=== PATIENT | female | born 1955 | race Caucasian/White ===

== ENCOUNTER → 2018-01-28 | Outpatient (CLI) | payer BC ==
--- NOTE | 2018-01-30 11:23 | MM ---
Reason for exam: screening (asymptomatic). Last mammogram was performed 1 year and 10 months ago. History: Patient is postmenopausal and had first child at age 34. Family history of breast cancer in maternal aunt at age 50 and breast cancer in maternal grandmother at age 85. Took hormonal contraceptives for 28 years. Taking estrogen for 1 year beginning at age 55. Taking progesterone for 1 year beginning at age 55. Physical Findings: A clinical breast exam by your physician is recommended on an annual basis and results should be correlated with mammographic findings. MG 3D Screening Mammo W/Cad Bilateral CC and MLO view(s) were taken. Prior study comparison: April 11, 2016, bilateral MG screening mammo w CAD. August 19, 2014, bilateral MG screening mammo w CAD. The breast tissue is heterogeneously dense. This may lower the sensitivity of mammography. No significant changes when compared with prior studies. ASSESSMENT: Negative, BI-RAD 1 RECOMMENDATION: Routine screening mammogram of both breasts in 1 year.
== END ==
LOC: RADMAMWWP 14:21
PROVIDERS: ATTEND Obstetrics & Gynecology
DX: Z12.31 Encounter for screening mammogram for malignant neoplasm of breast (principal); Z80.3 Family history of malignant neoplasm of breast
CPT/HCPCS: 77063; 77067

== ENCOUNTER → 2019-01-29 | Outpatient (CLI) | payer BC ==
--- NOTE | 2019-02-01 13:44 | MM ---
Reason for exam: screening (asymptomatic). Last mammogram was performed 1 year ago. History: Patient is postmenopausal and had first child at age 34. Family history of breast cancer in maternal aunt at age 50 and breast cancer in maternal grandmother at age 85. Took hormonal contraceptives for 28 years. Taking estrogen for 1 year beginning at age 55. Taking progesterone for 1 year beginning at age 55. Physical Findings: A clinical breast exam by your physician is recommended on an annual basis and results should be correlated with mammographic findings. MG 3D Screening Mammo W/Cad Bilateral CC and MLO view(s) were taken. Prior study comparison: January 28, 2018, bilateral MG 3d screening mammo w/cad. April 11, 2016, bilateral MG screening mammo w CAD. The breast tissue is heterogeneously dense. This may lower the sensitivity of mammography. No significant changes when compared with prior studies. ASSESSMENT: Benign, BI-RAD 2 RECOMMENDATION: Routine screening mammogram of both breasts in 1 year.
== END | disposition home or self-care (01) ==
LOC: RADMAMWWP 10:51
PROVIDERS: ATTEND Obstetrics & Gynecology
DX: Z12.31 Encounter for screening mammogram for malignant neoplasm of breast (principal); Z80.3 Family history of malignant neoplasm of breast
CPT/HCPCS: 77063; 77067

== ENCOUNTER → 2020-03-27 | Outpatient (CLI) | payer BC ==
--- NOTE | 2020-03-28 11:31 | MM ---
Reason for exam: screening (asymptomatic). Last mammogram was performed 1 year and 2 months ago. History: Patient is postmenopausal and had first child at age 34. Family history of breast cancer in maternal aunt at age 50 and breast cancer in maternal grandmother at age 85. Took hormonal contraceptives for 28 years. Taking estrogen for 1 year beginning at age 55. Taking progesterone for 1 year beginning at age 55. Physical Findings: A clinical breast exam by your physician is recommended on an annual basis and results should be correlated with mammographic findings. MG 3D Screening Mammo W/Cad Bilateral CC and MLO view(s) were taken. Prior study comparison: January 29, 2019, bilateral MG 3d screening mammo w/cad. January 28, 2018, bilateral MG 3d screening mammo w/cad. The breast tissue is heterogeneously dense. This may lower the sensitivity of mammography. There is no discrete abnormality. ASSESSMENT: Negative, BI-RAD 1 RECOMMENDATION: Routine screening mammogram of both breasts in 1 year.
== END | disposition home or self-care (01) ==
LOC: RADMAMWWP 09:34
PROVIDERS: ATTEND Obstetrics & Gynecology
DX: Z12.31 Encounter for screening mammogram for malignant neoplasm of breast (principal)
CPT/HCPCS: 77063; 77067

== ENCOUNTER → 2021-12-13 | Outpatient (CLI) | payer BC ==
--- NOTE | 2021-12-14 07:43 | MM ---
Reason for Exam: Screening (asymptomatic). Last mammogram was performed 1 year(s) and 9 month(s) ago. Patient History: Menarche at age 17. First Full-Term at age 34. Late child-bearing (after 30). Postmenopausal. Currently using Estrogen, beginning at age 55 for 1 year. Currently using Progesterone, beginning at age 55 for 1 year. Patient used Hormonal Contraceptives for 28 years. Maternal grandmother had breast cancer, age 85. Maternal aunt had breast cancer, age 50. Risk Values: Gwendolyn 5 year model risk: 2.1%. NCI Lifetime model risk: 7.8%. Prior Study Comparison: 01/28/2018 Bilateral Screening Mammogram, [facility]. 01/29/2019 Bilateral Screening Mammogram, [facility] 03/27/2020 Bilateral Screening Mammogram, [facility]. Tissue Density: The breast tissue is heterogeneously dense. This may lower the sensitivity of mammography. Findings: Analyzed By CAD. There is a grouping of punctate calcifications within the upper-outer aspect left breast which is an interval change. Additional workup with magnification views is recommended. Right breast appear stable. Overall Assessment: Incomplete: need additional imaging evaluation, BI-RAD 0 Management: Diagnostic Mammogram of the left breast. A negative mammogram report should not preclude additional follow up of suspicious palpable abnormalities. Patient should continue monthly self breast exam. A clinical breast exam by your physician is recommended on an annual basis and results should be correlated with mammographic findings. Electronically signed and approved by: Zana Webb D.O. Radiologis
== END | disposition home or self-care (01) ==
LOC: RADMAMWWP 16:49
PROVIDERS: ATTEND Obstetrics & Gynecology
DX: Z12.31 Encounter for screening mammogram for malignant neoplasm of breast (principal); Z80.3 Family history of malignant neoplasm of breast
CPT/HCPCS: 77063; 77067

== ENCOUNTER → 2021-12-21 | Outpatient (CLI) | payer BC ==
--- NOTE | 2021-12-21 14:51 | MM ---
Reason for Exam: Additional evaluation requested from abnormal screening. Last screening mammogram was performed less than 1 month ago. Patient History: Menarche at age 17. First Full-Term at age 34. Late child-bearing (after 30). Postmenopausal. Currently using Estrogen, beginning at age 55 for 1 year. Currently using Progesterone, beginning at age 55 for 1 year. Patient used Hormonal Contraceptives for 28 years. Maternal grandmother had breast cancer, age 85. Maternal aunt had breast cancer, age 50. Risk Values: Gwendolyn 5 year model risk: 2.1%. NCI Lifetime model risk: 7.8%. Prior Study Comparison: 01/29/2019 Bilateral Screening Mammogram, [facility]. 03/27/2020 Bilateral Screening Mammogram, [facility]. 12/13/2021 Bilateral MG 3D screening mammo w/cad, [facility]. Tissue Density: Left: The breast tissue is heterogeneously dense. This may lower the sensitivity of mammography. Findings: Analyzed By CAD. Patient notes an area of palpable abnormality since recent screening mammogram. The site of concern was marked with a palpable skin marker. At the site of clinical concern there is a spiculated mass measuring an estimated 1.0 x 1.3 cm. Ultrasound is recommended. At the site of the patient's call back posterior one third left breast upper outer quadrant no discrete abnormality is identified. Ultrasound of the upper outer quadrant left breast including the axilla is recommended. Overall Assessment: Incomplete: need additional imaging evaluation, BI-RAD 0 Management: Diagnostic Breast Ultrasound of the left breast. A clinical breast exam by your physician is recommended on an annual basis and results should be correlated with mammographic findings. This exam should not preclude additional follow-up of suspicious palpable abnormalities. Results were given to the patient verbally at the time of exam. Electronically signed and approved by: Hernan Rodas M.D. Radiologis
--- NOTE | 2021-12-21 14:52 | USB ---
Reason for Exam: Additional evaluation requested from abnormal screening. Patient History: Menarche at age 17. First Full-Term at age 34. Late child-bearing (after 30). Postmenopausal. Currently using Estrogen, beginning at age 55 for 1 year. Currently using Progesterone, beginning at age 55 for 1 year. Patient used Hormonal Contraceptives for 28 years. Maternal grandmother had breast cancer, age 85. Maternal aunt had breast cancer, age 50. Risk Values: Gwendolyn 5 year model risk: 2.1%. NCI Lifetime model risk: 7.8%. Technique: Method: Targeted. Prior Study Comparison: 01/29/2019 Bilateral Screening Mammogram, [facility]. 03/27/2020 Bilateral Screening Mammogram, [facility]. 12/13/2021 Bilateral MG 3D screening mammo w/cad, [facility]. Findings: The upper outer quadrant of the left breast and the axilla of the left breast were scanned. There is a spiculated hypoechoic mass at the site of clinical concern which corresponds to the left 12:00 position 2 cm from the nipple and measures approximately 1.3 x 1.0 x .8 cm. Tissue diagnosis is recommended. There is also an enlarged and thickened lymph node left axillary tail measuring 1.3 cm for which biopsy is also recommended. At the left 1:00 position 4 cm from the nipple there is a small 3.4 mm cyst. Overall Assessment: Highly suggestive of malignancy, BI-RAD 5 Management: Ultrasound Core Biopsy of the left breast. A clinical breast exam by your physician is recommended on an annual basis and results should be correlated with mammographic findings. Electronically signed and approved by: Hernan Rodas M.D. Radiologis
== END | disposition home or self-care (01) ==
LOC: RADMAMWWP 13:32
PROVIDERS: ATTEND Obstetrics & Gynecology
DX: R92.8 Other abnormal and inconclusive findings on diagnostic imaging of breast (principal)
CPT/HCPCS: 77061; 77065

== ENCOUNTER → 2022-01-04 | Day surgery (SDC) | payer BC ==
--- NOTE | 2022-01-04 12:16 | MM ---
Reason for Exam: Post Procedure Mammogram. Last screening mammogram was performed less than 1 month ago. Patient History: Menarche at age 17. First Full-Term at age 34. Late child-bearing (after 30). Postmenopausal. Currently using Estrogen, beginning at age 55 for 1 year. Currently using Progesterone, beginning at age 55 for 1 year. Patient used Hormonal Contraceptives for 28 years. Maternal grandmother had breast cancer, age 85. Maternal aunt had breast cancer, age 50. Risk Values: Gwendolyn 5 year model risk: 2.1%. NCI Lifetime model risk: 7.8%. Tissue Density: Left: The breast tissue is heterogeneously dense. This may lower the sensitivity of mammography. Overall Assessment: Post procedure mammogram for marker placement Management: Clinical Management Electronically signed and approved by: Chilo Cain D.O.
--- NOTE | 2022-01-11 10:50 | USB ---
Risk Values: Gwendolyn 5 year model risk: 2.1%. NCI Lifetime model risk: 7.8%. Prior Study Comparison: 03/27/2020 Bilateral Screening Mammogram, [facility]. 12/13/2021 Bilateral MG 3D screening mammo w/cad, [facility]. 12/21/2021 Left MG 3D work up w/cad , [facility]. Pathology Description: Location: 12 o'clock, anterior, axilla. Marker Left Behind. 1200 , 5 CORES RIBBON CLIP. AXILLA 6 CORES HYDROMARK The procedure of ultrasound guided core biopsy was explained to the patient. Benefits, alternatives, and risks were discussed. An informed consent was then obtained. The patient was placed in supine positioning for imaging and for the procedure. The overlying skin was prepped and draped in usual sterile fashion. Lidocaine was used as anesthetic into the skin and subcutaneous tissue up to area of concern in the left breast. Under ultrasound guidance, a 12-gauge vacuum assisted biopsy gun device was used to obtain 5 core samples. Following this, a biopsy clip was left in lesion. Attention was turned to the left axilla to the abnormal lymph node. Lidocaine was used as anesthetic into the skin and subcutaneous tissues up to the abnormal lymph node. An 18-gauge [employer] biopsy gun device was used to obtain 6 core samples. Following this a hydromark biopsy clip was left in the lymph node. The patient tolerated the procedure well without any immediate complication. The patient was kept in the radiology department for short stay after the procedure and then discharged home in stable condition. Postprocedure mammogram: The patient was transferred to mammography for physician ordered post procedure mammogram for clip placement verification. The mammogram clip for the breast lesion appears to be in appropriate position. Impression: Successful, uncomplicated ultrasound guided core biopsy of area of concern in the left breast and abnormal left axillary lymph node, full pathology results to follow. Pathology Results: Result: Malignant, Invasive ductal carcinoma. A. LEFT BREAST, TWELVE O'CLOCK, ULTRASOUND GUIDED NEEDLE CORE BIOPSY: Focal Grade 2 invasive ductal carcinoma with areas of lobular neoplasia (ALH/LCIS). See Surgical Pathology Cancer Case Summary and Comment. B. LEFT AXILLA, CORE BIOPSY: Invasive ductal carcinoma, Grade 1 (See Surgical Pathology Cancer Case Summary and Comment). Overall Assessment: Malignant Management: Surgical Consultation of the left breast. Electronically signed and approved by: Chilo Cian D.O.
== END ==
LOC: RADUSWWP 10:08
PROVIDERS: ATTEND Surgery
DX: C50.412 Malignant neoplasm of upper-outer quadrant of left female breast (principal); Z80.3 Family history of malignant neoplasm of breast
CPT/HCPCS: 88305; 88342; 88341; 77065; 19083; A4648

== ENCOUNTER → 2023-08-05 | Outpatient (CLI) | payer BC ==
[2023-08-05 15:44] VITALS: BP 126/81; PULSE 69; RESP 12; TEMP 98.2
--- NOTE | 2023-08-05 16:25 | P.SLEEP ---
History of Present Illness H&P Date: 08/05/23 This is a very pleasant 67-year-old female patient is coming in for further advice regarding her recent home sleep study that was done through [employer] regarding her possibly having obstructive sleep apnea. The patient was feeling chronic if he fatigued and she had also some limited sleepiness. Her [place] score was at 3. The patient underwent a home sleep study through this company and this study was done on 05/14/2023. The total sleep time was 6 hours and 1 minutes. During this time, the patient encountered a total of 137 apneas and these were essentially unclassified apneas. This study did not mention whether this was obstructive or central sleep apnea. The patient also encountered mild nocturnal oxygen desaturation. There was a total of 189 oxygen saturations were counted and the patient spent approximately 0.5 minutes of the sleep time below pulse ox of 89%. Based on that, CPAP therapy was recommended. The patient was uncomfortable on definitive treatment. She came in for further advice. He is known to have's some mild soft snoring. She goes to bed around midnight wakes up 8 AM in the morning. She is currently retired. She is feeling tired and fatigue during the day. No recent weight loss gain. No alcoholism. No substance abuse. No sleep fragmentation. No sleep paralysis hallucinations or cataplexy. He does not have history of depression. She also has history of breast cancer and she has undergone lumpectomy and radiation therapy and currently she is on hormonal treatment. In regards to her depression, is currently on a combination of bupropion and paroxetine. She is sleeping on her side. She seems to be a nose breather. No nocturnal seizures. No chest pain or shortness of breath. No anxiety. No sleep attacks. No nocturnal palpitation. No issues with memory or concentration. She does not fall asleep while driving her car. Review of Systems Constitutional: Reports daytime sleepiness, Reports fatigue Eyes: denies as per HPI, denies blurred vision, denies bulging eye, denies decreased vision, denies diplopia, denies discharge, denies dry eye, denies irritation, denies itching, denies pain, denies photophobia, denies loss of peripheral vision, denies loss of vision, denies tunnel vision/blind spots Ears: deny: decreased hearing, ear discharge, earache, tinnitus Ears, nose, mouth and throat: Reports as per HPI Breasts: absent: as per HPI, change in shape, gynecomastia, masses, nipple discharge, pain, skin changes, swelling Cardiovascular: Reports as per HPI Respiratory: Reports sleep apnea Gastrointestinal: Reports as per HPI Genitourinary: Reports as per HPI Menstruation: Reports as per HPI Musculoskeletal: Reports as per HPI Musculoskeletal: absent: ankle pain, ankle stiffness, ankle swelling Integumentary: Reports as per HPI Neurological: Reports as per HPI Psychiatric: Reports as per HPI Endocrine: Reports as per HPI, Reports fatigue Hematologic/Lymphatic: Reports as per HPI Allergic/Immunologic: Reports as per HPI Past Medical History Past Medical History: Cancer (Breast cancer with a previous lumpectomy followed by radiation therapy and currently she is on hormone treatment.) Additional Past Medical History / Comment(s): breast History of Any Multi-Drug Resistant Organisms: None Reported Past Surgical History: Breast Surgery, Orthopedic Surgery Additional Past Surgical History / Comment(s): Dilatation and curettagge. Right meniscus repair 2012 Past Anesthesia/Blood Transfusion Reactions: No Reported Reaction Past Psychological History: Anxiety Smoking Status: Never smoker Past Alcohol Use History: Rare Past Drug Use History: None Reported Medications and Allergies Home Medications Medication Instructions Recorded Confirmed Type [place]-3/Dha/Epa/Fish Oil [Fish Oil 1 each PO DAILY 12/24/21 08/05/23 History 1,000 mg Softgel] PARoxetine [Paxil] 10 mg PO DAILY 12/24/21 08/05/23 History Progesterone, Micronized 200 mg PO HS 12/24/21 12/24/21 History [Progesterone] buPROPion XL [Wellbutrin XL] 150 mg PO DAILY 12/24/21 08/05/23 History Letrozole [Femara] 2.5 mg PO DAILY 08/05/23 08/05/23 History estradioL [Vagifem] 10 mcg VAGINAL 08/05/23 History Allergies Allergy/AdvReac Type Severity Reaction Status Date / Time No Known Allergies Allergy Verified 12/24/21 10:07 Physical Exam Vitals: Vital Signs Temp Pulse Resp BP Pulse Ox 08/05/23 15:32 98.2 F 69 12 126/81 96 Intake and Output 08/05/23 08/05/23 08/05/23 06:59 14:59 22:59 Other: Weight 77.564 kg The patient appeared well nourished and normally developed. Vital signs as documented. Head exam is unremarkable. No scleral icterus or corneal arcus noted. Neck is without jugular venous distension, thyromegaly, or carotid bruits. Carotid upstrokes are brisk bilaterally. Lungs are clear to auscultation and percussion. Cardiac exam reveals the PMI to be normally sized and situated. Rhythm is regular. First and second heart sounds normal. No murmurs, rubs or gallops. Abdominal exam reveals normal bowel sounds, no masses, no organomegaly and no aortic enlargement. Extremities are nonedematous and both femoral and pedal pulses are normal. Examination of the skin revealed no evidence of signif icant rashes, suspicious appearing nevi or other concerning lesions. Neurologically, the patient is awake and alert and the patient does not have any focal neurological deficit. Cranial nerves are essentially intact. Assessment and Plan Plan: Sleep apnea. Based on the home sleep study that was done on 05/14/2023, the patient was diagnosed having moderately severe sleep apnea with an AHI of 22. Nevertheless, the study did not indicate whether this was obstructive or central. In fact, there was a total of 137 respiratory events that were unclassified. Minimal nocturnal oxygen saturation identified. As such, no decisions can be made on treatment options. This could be potential obstructive versus mixed versus central. Chronic fatigue Limited sleepiness, current [place] score is at 3 Mild snoring History of breast cancer with previous lumpectomy radiation therapy History of chronic depression maintained on a combination of paroxetine and bupropion Plan I discussed the findings with the patient. Obviously, no decision can be made on treatment options specially the patient's study was suboptimal and the respiratory events were essentially unclassified. I am recommending repeating a home sleep study in 6 to 8 weeks. The patient was encouraged to lose weight and come back to undergo another home sleep study and based on those results we will make a final decision on treatment options. He may potentially benefit from CPAP therapy if the patient is confirmed to have an obstructive sleep apnea. Maintain good sleep hygiene measures. Sleep on the side. Maintain regular sleep schedule. Will continue to follow. Sleep Note - Sleep Data ESS Total: 3 - Sleep Note Sleep Note: Temperature: 98.2 F Pulse Rate: 69 Respiratory Rate: 12 Blood Pressure: 126/81 SpO2: 96 Height: 5 ft 5 in Weight: 77.564 kg BMI: Neck Circumference: 13.5
== END ==
LOC: 3 N SLEEP 14:27
PROVIDERS: ATTEND Internal Medicine Critical Care Medicine
DX: G47.33 Obstructive sleep apnea (adult) (pediatric) (principal); R53.82 Chronic fatigue, unspecified; R06.83 Snoring
CPT/HCPCS: 99211

== ENCOUNTER → 2023-09-05 | Outpatient (CLI) | payer BC ==
--- NOTE | 2023-09-09 18:23 | P.PCN ---
Date of Procedure: 09/05/23 Description of Procedure: Home Sleep Study Date of service is 09/05/2023 Pertinent history This is a very pleasant 67-year-old female patient is coming in for further advice regarding her recent home sleep study that was done through [employer] regarding her possibly having obstructive sleep apnea. The patient was feeling chronic if he fatigued and she had also some limited sleepiness. Her [place] Jack[place] score was at 3. The patient underwent a home sleep study through this company and this study was done on 05/14/2023. The total sleep time was 6 hours and 1 minutes. During this time, the patient encountered a total of 137 apneas and these were essentially unclassified apneas. This study did not mention whether this was obstructive or central sleep apnea. The patient also encountered mild nocturnal oxygen desaturation. There was a total of 189 oxygen saturations were counted and the patient spent approximately 0.5 minutes of the sleep time below pulse ox of 89%. Based on that, CPAP therapy was recommended. The patient was uncomfortable on definitive treatment. She came in for further advice. He is known to have's some mild soft snoring. She goes to bed around midnight wakes up 8 AM in the morning. She is currently retired. She is feeling tired and fatigue during the day. No recent weight loss gain. No alcoholism. No substance abuse. No sleep fragmentation. No sleep paralysis hallucinations or cataplexy. He does not have history of depression. She also has history of breast cancer and she has undergone lumpectomy and radiation therapy and currently she is on hormonal treatment. In regards to her depression, is currently on a combination of bupropion and paroxetine. She is sleeping on her side. She seems to be a nose breather. No nocturnal seizures. No chest pain or shortness of breath. No anxiety. No sleep attacks. No nocturnal palpitation. No issues with memory or concentration. She does not fall asleep while driving her car. Presenting physical findings The patient has a body mass index of 28.5 and the weight is 77 kg Technical description The [employer] system was used to complete this home sleep study. This is a type III home sleep study. Total recording duration was 8 hours and 36 minutes. The study started at 10:43 PM and the study ended at 7:39 AM. This was an adequate study as the patient had a total of 8 hours and 45 minutes of flow evaluation and oxygen saturation evaluation Results Respiratory analysis showed a total of 36 obstructive apneas and 102 obstructive hypopneas. The resulting AHI was 15.8 consistent with mild obstructive sleep apnea. Oxygenation analysis The patient had a total of 126 oxygen desaturations with a pulse ox drop by more than 4%. The minimum recorded pulse ox was 83% and the patient spent approximately 60 minutes of sleep time below pulse ox of 89%. The baseline pulse ox while awake was 96%, average pulse ox during sleep was 92% Cardiac summary The average heart rate was 59 with a minimum heart rate of 48 and a maximum heart rate of 86 Assessment Mild obstructive sleep apnea with an AHI of 15 Mild nocturnal oxygen desaturations with a minimum pulse ox of 83% Chronic fatigue with limited sleepiness with an Red Jacket score of 3 Snoring Breast cancer with previous lumpectomy and radiation therapy Chronic depression maintained on a combination of paroxetine and Wellbutrin. Plan This is a case of mild obstructive sleep apnea. The patient is relatively asymptomatic. Will discuss the findings with the patient. Will come up with treatment options. Consider CPAP therapy versus oral appliance versus conservative measures. Final decision will be made after having any discussion of treatment options with the patient.
== END ==
LOC: 3 N SLEEP 10:58
PROVIDERS: ATTEND Internal Medicine Critical Care Medicine
DX: G47.33 Obstructive sleep apnea (adult) (pediatric) (principal); G47.36 Sleep related hypoventilation in conditions classified elsewhere; G47.10 Hypersomnia, unspecified; F32.A Depression, unspecified; C50.919 Malignant neoplasm of unspecified site of unspecified female breast; R53.82 Chronic fatigue, unspecified; Z98.890 Other specified postprocedural states; Z92.3 Personal history of irradiation; Z79.899 Other long term (current) drug therapy

== ENCOUNTER → 2024-06-21 | Outpatient (CLI) | payer BC ==
--- NOTE | 2024-06-22 08:43 | BD ---
EXAMINATION TYPE: Axial Bone Density DATE OF EXAM: 06/21/2024 CLINICAL HISTORY: 68 years old Female. ICD-10 CODE: M81.0 AGE RELATED OSTEO , Additional History: Height: 63" Weight: 160lbs FRAX RISK QUESTIONS: Alcohol (3 or more units per day): No Family History (Parent hip fracture): No Glucocorticoids (More than 3mos): No (Ex: prednisone, prednisolone, methylprednisolone, dexamethasone, and hydrocortisone). History of Fracture in Adulthood: No Secondary Osteoporosis: 1. Type 1 Diabetes: No 2. Hyperthyroidism: No 3. Menopause before 45: No 4. Malnutrition: No 5. Chronic liver disease: No Rheumatoid Arthritis: No Current Tobacco Use: No RISK FACTORS HISTORY OF: Hip Fracture (Right/Left): No Spine Fracture: No History of Wrist Fracture: No Surgery to Spine/Hip(right/left)/Wrist (right/left): No MEDICATIONS: Thyroid Medications: No Osteoporosis Medications: No EXAM MEASUREMENTS: Bone mineral densitometry was performed using the [email or web address] System. Bone mineral density as measured about the Lumbar spine is: ----- L1-L4(G/cm2): 1.163 T Score Values are as follows: ----- L1: 0.1 ----- L2: -1.0 ----- L3: -0.6 ----- L4: 0.6 ----- L1-L4: -0.1 Z Score Values are as follows: ----- L1: 1.5 ----- L2: 0.4 ----- L3: 0.8 ----- L4: 2.0 ----- L1-L4: 1.2 Bone mineral density has: decreased -2.1% since study of: 05/30/2022 Bone mineral density about the R hip (g/cm2): 1.071 Bone mineral density about the L hip (g/cm2): 1.043 T Score values are as follows: -----R Neck: 0.3 -----L Neck: 0.2 -----R Total: 0.5 -----L Total: 0.3 Z Score values are as follows: -----R Neck: 1.7 -----L Neck: 1.6 -----R Total: 1.7 -----L Total: 1.4 Bone mineral density has: increased 0.3% since study of: 05/30/2022 FRAX%s: The graph provided illustrates a 6.6% chance for a major osteoporotic fx and a 0.2% chance fo r the hips probability for fx in 10 years time. IMPRESSION: Normal (Values between +1 and -1 indicate normal bone mass). Consider repeating this study in 5 year s or sooner if there is some new clinical indication. NOTE: T-SCORE=SD OF THE YOUNG ADULT MEAN. [facility], , 06/22/2024 8:41 AM
== END | disposition home or self-care (01) ==
LOC: RADBDWWP 15:56
PROVIDERS: ATTEND Internal Medicine Hematology & Oncology
DX: C50.412 Malignant neoplasm of upper-outer quadrant of left female breast (principal); M85.89 Other specified disorders of bone density and structure, multiple sites; G47.30 Sleep apnea, unspecified; Z71.3 Dietary counseling and surveillance
CPT/HCPCS: 77080